=== PATIENT | female | born 1995 | race Asian ===

== ENCOUNTER 2024-09-20 19:25 | Inpatient (IN) ==
[2024-09-20] MEDS ORDERED: Lidocaine 1% VIAL 10 MG/ML 30 ML VIAL INJ PRN (21:00)
[2024-09-20] MEDS ORDERED: Prochlorperazine 5 mg/ml 2 ml VIAL (10 mg) IV PRN (21:00)
[2024-09-20] MEDS ORDERED: Penicillin G Potassium IV 3,000,000 UNITS in NS 0.9% 100 ml BAG 100 ML IVPB SCH (21:00)
[2024-09-20] MEDS ORDERED: Nalbuphine 10 MG/ML 1 ML VIAL IV PRN (21:00)
[2024-09-20 21:19] LABS: ABS Lymphocytes 1.3 10^3/uL (1.0-4.8); ABS Monocytes 0.6 10^3/uL (0.0-0.9); ABS Neutrophils 6.7 10^3/uL (1.5-7.6); Eosinophil % 0.2 %; Hematocrit 38.5 % (35-45); Hemoglobin 13.3 g/dL (11.5-14.3); Mean Corpuscular Hemoglobin 32.1 pg (27-33); Mean Corpuscular Hgb Conc 34.5 g/dL (31-36); Mean Corpuscular Volume 93.2 fL (80-97); Mean Platelet Volume 8.1 fL (7.5-11.2); Platelet Count 211 10^3/uL (150-450); Red Blood Count 4.14 10^6/uL (3.63-4.92); White Blood Count 8.7 10^3/uL (3.8-11.8)
[2024-09-20 21:41] LABS: Urine Benzodiazepine Screen None Detected (None Detect); Urine Cannabinoids Screen None Detected (None Detect); Urine Opiates Screen None Detected (None Detect)
[2024-09-20] MEDS: miSOPROStol 100 mcg TAB PO SCH (22:13)
[2024-09-20] MEDS: Lactated Ringers 1000 ml BAG 1,000 ML IV ONE (22:15)
[2024-09-20] MEDS: Penicillin G Potassium IV 5,000,000 UNITS in NS 0.9% 100 ml BAG 100 ML IVPB ONE (22:41)
[2024-09-20] MEDS: Buffered Lidocaine 1% SYRIN 1 ml INTRADERM ONE (23:10)
[2024-09-21] MEDS: Penicillin G Potassium IV 3,000,000 UNITS in NS 0.9% 100 ml BAG 100 ML IVPB SCH (03:26)
[2024-09-21] MEDS: Lactated Ringers 1000 ml BAG 1,000 ML IV SCH (04:00)
[2024-09-21] MEDS: Oxytocin in NS 30,000 MILLI.UNIT/500 ML BAG IV ONE (08:29)
[2024-09-21] MEDS ORDERED: Glycerin ADULT 2.4 gm SUPP PR PRN (08:48)
[2024-09-21] MEDS ORDERED: Lactated Ringers 1000 ml BAG 1,000 ML IV SCH (09:00)
[2024-09-21] MEDS: Witch Hazel PAD JAR TOPICAL PRN (10:29)
[2024-09-21] MEDS: Dibucaine 1% OINT 28.35 GM TUBE PR PRN (10:29)
[2024-09-21] MEDS: Oxytocin in NS 30,000 MILLI.UNIT/500 ML BAG IV SCH (12:09)
[2024-09-22 09:01] LABS: ABS Lymphocytes 1.7 10^3/uL (1.0-4.8); ABS Monocytes 0.9 10^3/uL (0.0-0.9); ABS Neutrophils 9.6 10^3/uL (1.5-7.6); Eosinophil % 0.2 %; Hematocrit 34.9 % (35-45); Mean Corpuscular Hemoglobin 31.8 pg (27-33); Mean Corpuscular Hgb Conc 34.3 g/dL (31-36); Mean Corpuscular Volume 92.7 fL (80-97); Mean Platelet Volume 7.7 fL (7.5-11.2); Platelet Count 198 10^3/uL (150-450); Red Blood Count 3.77 10^6/uL (3.63-4.92); Red Cell Distribution Width 14.5 % (12-17); White Blood Count 12.3 10^3/uL (3.8-11.8)
[2024-09-23 08:40] VITALS: BP 91/42
== END 2024-09-23 11:54 | disposition home or self-care (01) | DRG 560 ==
LOC: MCHOBOUT 19:25 → MCHOB 20:30
PROVIDERS: ADMIT Obstetrics & Gynecology; ATTEND Obstetrics & Gynecology